=== PATIENT | female | born 1995 | race African-American/Black ===

== ENCOUNTER 2018-10-26 20:01 | Emergency (ER) | payer OTHER ==
[~2018-10-26] VITALS: Ht 160 cm; Wt 69.4 kg
[2018-10-26 20:08] VITALS: Ht 160 cm; Wt 69.4 kg
[2018-10-26 22:02] LABS: BASOPHIL % 1.6 % (0-2); PLATELET COUNT 299 x10^3mcL (130-400); RED CELL DISTRIBUTION WIDTH 13.1 % (11.5-14.5)
[2018-10-26 22:10] LABS: CALCIUM 9.1 mg/dL (8.5-10.1); CARBON DIOXIDE 27.8 mmol/L (21-32); CHLORIDE SERUM 104 mmol/L (98-107); CREATININE SERUM 0.7 mg/dL (0.6-1.0); GFR1 > 60 mL/min; GLUCOSE SERUM 85 mg/dL (74-106); POTASSIUM SERUM 3.8 mmol/L (3.5-5.1); SODIUM SERUM 138 mmol/L (136-145)
[2018-10-26 22:23] LABS: ALBUMIN 3.6 g/dL (3.4-5.0); ALKALINE PHOSPHATASE 69 U/L (46-116); ALT/SGPT 17 U/L (14-59); AST/SGOT 12 U/L (15-37); BILIRUBIN TOTAL 0.3 mg/dL (0.20-1.00); T4(THYROXINE) 8.6 ug/dL (4.7-13.3); TOTAL PROTEIN, SERUM 7.2 g/dL (6.4-8.2)
[2018-10-26 23:16] VITALS: BP 114/59
== END 2018-10-26 23:16 | disposition home or self-care (01) ==
LOC: ED 20:01
PROVIDERS: Emergency Medicine
DX: E01.0 Iodine-deficiency related diffuse (endemic) goiter (principal); R63.4 Abnormal weight loss
CPT/HCPCS: 36415; J1885

== ENCOUNTER 2018-11-06 00:13 | Emergency (ER) | payer OTHER ==
[~2018-11-06] VITALS: Ht 162.6 cm; Wt 69.9 kg
[2018-11-06 00:20] VITALS: BP 119/78; Ht 162.6 cm; Wt 69.9 kg
== END 2018-11-06 00:50 | disposition left against medical advice (07) ==
LOC: ED 00:13
DX: Z53.21 Procedure and treatment not carried out due to patient leaving prior to being seen by health care provider (principal)